=== PATIENT | female | born 1970 | race Asian ===

== ENCOUNTER → 2018-03-26 | Day surgery (SDC) | payer OTHER ==
--- NOTE | 2018-03-29 21:13 | OP ---
DATE OF OPERATION: 03/26/2018 PREOPERATIVE DIAGNOSIS: Left breast mass. POSTOPERATIVE DIAGNOSIS: Left breast mass. PROCEDURE: Left ultrasound-guided core biopsy. ANESTHESIA: Local. ATTENDING SURGEON: Roxi Maher MD ESTIMATED BLOOD LOSS: Minimal. COMPLICATIONS: None. DESCRIPTION OF PROCEDURE: Patient was made aware of the risks and benefits of the procedure and consented. She was placed in supine position. Under sterile conditions and 1% lidocaine for local anesthesia, a small janine was made in the skin. Using a 13-gauge suction biopsy device under ultrasound guidance, multiple cores were obtained and submitted to Pathology. Well tolerated by patient. Steri-Strip and sterile bandage were applied. We will contact her with results. ROXI MAHER M.D. [id number]
--- NOTE | 2018-03-30 10:35 | PATH ---
Surgical Pathology Report Patient Name: KAT DYE [facility]. Rec. #: [id number] /Age/Gender: 1970 (Age: 47) / F Account: [id number] Location: [place] Pathology Taken: 03/26/2018 Received: 03/26/2018 Reported: 03/30/2018 Physicians: Roxi Maher M.D. Specimen(s) Received LEFT BREAST CORE BIOPSY [facility] Clinical History Ultrasound findings: Highly suspicious/malignant Final Diagnosis LEFT BREAST, UPPER INNER QUADRANT, CORE BIOPSY: INVASIVE DUCTAL CARCINOMA, POORLY DIFFERENTIATED, MEASURING 0.9 CM IN GREATEST DIMENSION IN THIS MATERIAL. Results of Estrogen Receptor (ER) and Progesterone Receptor (FL) studies performed on block "1" at [facility] are as follows: ER (clone [id number] mouse monoclonal antibody by [employer]): 5% nuclear staining with moderate intensity (Low Positive). FL (clone16 mouse monoclonal antibody by [employer]): 5% nuclear staining with weak intensity (Low Positive). Positive and negative controls (internal if applicable) show appropriate results. Formalin fixation and cold ischemic times are within current ASCO/CAP recommendations for ER, FL and Her2 testing. Comment: Immunohistochemical stain performed and interpreted at [facility] show the tumor cells are negative for P63, ruling out squamoid metaplasia. Reports for Her 2 and Ki-67 to follow. Electronically Signed Bernabe Hogue M.D. Addendum Reported: 03/31/2018 Addendum Diagnosis Biomarker Studies Results of Her2 (IHC) & Ki-67 studies performed on this specimen at [place], [place] ([id number]) interpreted at [facility] are as follows: Her2 IHC (EP3 from [employer], formerly known as [id number], using [employer] Polymer Refine detection kit): Positive (3+) Ki-67: ~40% (high proliferative index) Bernabe Hogue M.D. Gross Description Received in formalin labeled "left breast biopsy upper inner quadrant," is a 1.5 x 1.4 x 0.2 cm aggregate of prieto-yellow, irregular to cylindrical al portions of fibroadipose tissue admixed with blood clot. The formalin is filtered and the specimen is entirely submitted in one cassette. Total formalin fixation time: Approximately 6 hours 03/26/201803/26/2018
== END | disposition home or self-care (01) ==
LOC: FRADUS-SUR 09:54
PROVIDERS: ATTEND Surgery Surgical Oncology
PROC: 0HBU3ZX Excision of Left Breast, Percutaneous Approach, Diagnostic (ICD-10-PCS; principal; 2018-03-26)
DX: C50.212 Malignant neoplasm of upper-inner quadrant of left female breast (principal); Z17.0 Estrogen receptor positive status [ER+]; N63.21 Unspecified lump in the left breast, upper outer quadrant
CPT/HCPCS: 19083; 87899; 88305-TC; 88342-TC; A4648